=== PATIENT | female | born 1975 | race Caucasian/White ===

== ENCOUNTER 2017-03-22 21:19 | Emergency (ER) | payer OTHER ==
[~2017-03-22] VITALS: Ht 165.1 cm; Wt 79.6 kg
[2017-03-22 21:21] VITALS: BP 121/79
[2017-03-22] MEDS ORDERED: MOME13HF2 INH (22:10)
[2017-03-22] MEDS ORDERED: ALBU0.63 NEB (22:10)
[2017-03-22] MEDS ORDERED: CYAN1TAB29 PO (22:10)
[2017-03-22] MEDS ORDERED: MULT-208 PO (22:11)
[2017-03-22] MEDS ORDERED: DIAZEPAM 5 MG TABLET PO ONE (22:30)
[2017-03-22] MEDS ORDERED: HYDROcodone/APAP 5/325 TABLET PO ONE (22:30)
[2017-03-22] MEDS ORDERED: HYDROcodone/APAP 5/325 TABLET ONE (22:51)
[2017-03-22] MEDS ORDERED: DIAZEPAM 5 MG TABLET ONE (22:51)
== END 2017-03-22 23:00 | disposition home or self-care (01) ==
LOC: ED 22:00
DX: G24.3 Spasmodic torticollis (principal); J45.909 Unspecified asthma, uncomplicated
CPT/HCPCS: 99283